=== PATIENT | male | born 1990 | race Caucasian/White ===

== ENCOUNTER 2021-06-14 18:02 | Emergency (ER) | payer OTHER ==
[~2021-06-14] VITALS: Ht 180.3 cm; Wt 86.2 kg
[2021-06-14 19:33] VITALS: BP 131/70
== END 2021-06-14 19:34 | disposition home or self-care (01) ==
LOC: M.ERS 18:02
DX: R51.9 Headache, unspecified (principal); V03.09XA Pedestrian with other conveyance injured in collision with car, pick-up truck or van in nontraffic accident, initial encounter; Y93.89 Activity, other specified; Y92.488 Other paved roadways as the place of occurrence of the external cause; Y99.8 Other external cause status